=== PATIENT | female | born 1975 | race Hispanic/Latino ===

== ENCOUNTER 2022-06-24 19:31 | Emergency (ER) | payer BC ==
[~2022-06-24] VITALS: Ht 162.6 cm; Wt 88.5 kg
[2022-06-24] MEDS ORDERED: ACETAMINOPHEN 325 MG TAB PO ONE ×2 (20:15)
[2022-06-24] MEDS ORDERED: ACETAMINOPHEN 325 MG TAB ONE (20:22)
[2022-06-24 21:40] VITALS: BP 116/84
== END 2022-06-24 21:42 | disposition home or self-care (01) ==
LOC: ER 20:06
DX: R50.9 Fever, unspecified (principal); J02.9 Acute pharyngitis, unspecified; R05.9 Cough, unspecified; Z20.822 Contact with and (suspected) exposure to COVID-19
CPT/HCPCS: 83518; 87070; 99283; U0002

== ENCOUNTER 2022-08-02 16:54 | Emergency (ER) | payer BC ==
[~2022-08-02] VITALS: Ht 162.6 cm; Wt 88.5 kg
[2022-08-02] MEDS ORDERED: SODIUM CHLORIDE 0.9% 1000ML 1,000 ML IV STA (17:30)
[2022-08-02] MEDS ORDERED: ACETAMINOPHEN 325 MG TAB PO STA (17:30)
[2022-08-02 17:47] LABS: BASOPHILS % 0.1 % (0.0-1.0); EOSINOPHILS % 0.1 % (0.0-6.0); HEMOGLOBIN 14.2 g/dL (12.0-16.0); LYMPHOCYTES # (AUTO) 1.7 (1.0-3.2); LYMPHOCYTES % 14.4 % (18.0-39.1); MEAN CORPUSCULAR HEMOGLOBIN 31.6 pg (28-32); MEAN CORPUSCULAR HGB CONC 34.6 g/dL (31-35); MEAN CORPUSCULAR VOLUME 91.1 fL (81-99); MONOCYTES # (AUTO) 1.1 (0.2-0.8); MONOCYTES % 9.1 % (4.4-11.3); NEUTROPHILS # (AUTO) 9.1 (2.1-6.9); PLATELET COUNT 233 x10e3/uL (140-360)
[2022-08-02 18:08] LABS: CLARITY,URINE SL CLOUDY (CLEAR); COLOR,URINE YELLOW (YELLOW); KETONES,URINE NEGATIVE (NEGATIVE); LEUKOCYTE ESTERASE ,URINE SMALL (NEGATIVE); NITRITE,URINE POSITIVE (NEGATIVE); PROTEIN,URINE DIPSTICK TRACE (NEGATIVE); URINE UROBILINOGEN 0.2 mg/dL (0.2 - 1)
[2022-08-02 18:10] LABS: ALBUMIN 3.8 g/dL (3.5-5.0); ALBUMIN/GLOBULIN RATIO 1.1 (0.8-2.0); ANION GAP 14.4 mmol/L (8-16); CALCIUM 9.3 mg/dL (8.4-10.2); CREATININE, SERUM 0.75 mg/dL (0.57-1.11); POTASSIUM 3.4 mmol/L (3.5-5.1)
[2022-08-02 18:19] LABS: BACTERIA,URINE MANY /HPF; EPITHELIAL CELLS,URINE MODERATE /LPF; WBC,URINE (MAN) 21-50 /HPF (0-5)
[2022-08-02 18:24] LABS: CREATINE KINASE MB < 1.00 ng/mL (0-4.3)
[2022-08-02] MEDS ORDERED: IOPAMIDOL 370 MG/ML 100 ML INFUS..BTL INJ ONE (18:50)
[2022-08-02 20:14] LABS: CREATINE KINASE 105 IU/L (29-168)
[2022-08-02] MEDS ORDERED: AUGMENTIN 500-1 EACH PO (21:08)
[2022-08-02] MEDS ORDERED: ULTRAM 50MG50 MG PO (21:08)
[2022-08-02 21:21] VITALS: BP 122/67
== END 2022-08-02 21:23 | disposition home or self-care (01) ==
LOC: ER 17:02
DX: R50.9 Fever, unspecified (principal); J18.9 Pneumonia, unspecified organism; N12 Tubulo-interstitial nephritis, not specified as acute or chronic; Z20.822 Contact with and (suspected) exposure to COVID-19; R94.31 Abnormal electrocardiogram [ECG] [EKG]
CPT/HCPCS: 36415; 71045; 74177; 80053; 81001; 82550; 82553; 83605; 83880; 84484; 85025; 87040; 87071; 87186; 87205; 93005; 99284; J2543; J7030; Q9967; U0002

== ENCOUNTER → 2024-06-17 | Day surgery (SDC) | payer BC ==
[~2024-06-17] MED LIST: AUGMENTIN 500-1 EACH PO; CYMBALTA20 MG PO; LIDOCAINE HCL 2% LOCAL INJ 5 ML SDV VIAL INJ ONE; MIDAZOLAM HCL 2 MG/2 ML VIAL ONE; PROPOFOL IV EMULSION 10 MG/ML 20 ML VIAL ONE; PROTONIX20 MG PO; ULTRAM 50MG50 MG PO
[2024-06-17] MEDS: LACTATED RINGER'S 1,000 ML ONE (12:24)
[2024-06-17 13:00] VITALS: TEMP 97.1
[2024-06-17 13:30] VITALS: BP 148/76; PULSE 71; RESP 16; O2SAT 99
== END | disposition home or self-care (01) ==
LOC: OR 12:03
PROVIDERS: ATTEND Internal Medicine Gastroenterology
DX: Z12.11 Encounter for screening for malignant neoplasm of colon (principal); D12.4 Benign neoplasm of descending colon; K59.00 Constipation, unspecified; K64.8 Other hemorrhoids; K21.9 Gastro-esophageal reflux disease without esophagitis; R13.10 Dysphagia, unspecified; E83.119 Hemochromatosis, unspecified; M06.9 Rheumatoid arthritis, unspecified; Z01.810 Encounter for preprocedural cardiovascular examination; Z79.899 Other long term (current) drug therapy; Z68.37 Body mass index [BMI] 37.0-37.9, adult; Z80.0 Family history of malignant neoplasm of digestive organs
CPT/HCPCS: 45385; 93005; J2001; J2250; J2704; J7121; 45378

== ENCOUNTER 2025-03-01 13:23 | Emergency (ER) | payer BC, OTHER ==
[~2025-03-01 13:23] MED LIST changes: -LIDOCAINE HCL 2% LOCAL INJ 5 ML SDV VIAL INJ ONE; -MIDAZOLAM HCL 2 MG/2 ML VIAL ONE; -PROPOFOL IV EMULSION 10 MG/ML 20 ML VIAL ONE
[2025-03-01 13:40] VITALS: PULSE 75; RESP 20; TEMP 98.8
[2025-03-01] MEDS: LACTATED RINGER'S 1,000 ML IV ONE (14:17)
[2025-03-01] MEDS: ONDANSETRON HCL INJ 2MG/ML 2ML 2 MG/ML VIAL IV ONE (14:18)
[2025-03-01] MEDS: FAMOTIDINE 20 MG/2 ML VIAL IV ONE (14:18)
[2025-03-01] MEDS: MECLIZINE HCL 12.5 MG TAB PO ONE (14:18)
[2025-03-01] MEDS ORDERED: MECLIZINE HCL12.5 MG PO (14:51)
[2025-03-01 15:05] VITALS: BP 132/73; PULSE 69; RESP 18; TEMP 98.1; O2SAT 98
== END 2025-03-01 15:04 | disposition home or self-care (01) ==
LOC: FSED 13:26
DX: R42 Dizziness and giddiness (principal); R11.2 Nausea with vomiting, unspecified; R51.9 Headache, unspecified; R94.31 Abnormal electrocardiogram [ECG] [EKG]
CPT/HCPCS: 70450; 80053; 81003; 84484; 85025; 93005; 99283; J2405; J8597